=== PATIENT | female | born 1950 ===

== ENCOUNTER 2019-12-03 14:36 | Outpatient (CLI) | payer MEDICARE, OTHER, SELFPAY ==
--- NOTE | 2019-12-03 14:46 | XR_ITS ---
WS: [id number] DEXA (DUAL ENERGY X-RAY ABSORPTIOMETRY) Bone mineral density was performed using a [employer] machine. HISTORY: OSTEOPOROSIS COMPARISON: 09/24/2014 Lumbar spine BMD (L1-L4): 0.650 T score: -4.4 Z score: -2.5 Mild compression fracture L3. Total hip BMD: Left: 0.727. T score: -2.2 Z score: -0.6 Right: 0.500. T score: -4.0 Z score: -2.4 10 year probability of a major osteoporotic fracture is 33%. Compared to the prior study from 09/24/2014. Lumbar spine bone mineral density has decreased by 11%. Bilateral hips bone mineral density has decreased by 25%. XR/XR DEXA axial skeleton* [id number] IMPRESSION: OSTEOPOROSIS based upon the WHO classification for females. Significant decrease in bone mineral density since the prior study.
== END 2019-12-03 14:37 | disposition home or self-care (01) ==
LOC: RADWPI 14:44
PROVIDERS: Family Provider Family Medicine; PCP Family Medicine; Visit Provider Family Medicine
DX: M81.0 Age-related osteoporosis without current pathological fracture (principal)
CPT/HCPCS: 77080

== ENCOUNTER 2021-02-10 09:13 | Outpatient (CLI) | payer MEDICARE, OTHER, SELFPAY ==
[2021-02-10] MEDS: denosumab 60 mg SDV SUBCUT (09:30)
== END 2021-02-10 09:14 | disposition home or self-care (01) ==
LOC: ONCMED 09:15
PROVIDERS: Family Provider Family Medicine; PCP Family Medicine; Visit Provider Family Medicine
DX: M81.0 Age-related osteoporosis without current pathological fracture (principal)
CPT/HCPCS: 96372; J0897

== ENCOUNTER 2021-08-11 09:40 | Outpatient (CLI) | payer MEDICARE, OTHER, SELFPAY ==
[2021-08-11] MEDS: denosumab 60 mg SDV SUBCUT (10:15)
== END 2021-08-11 09:41 | disposition home or self-care (01) ==
LOC: ONCMED 09:45
PROVIDERS: PCP Family Medicine; Visit Provider Family Medicine
DX: M81.0 Age-related osteoporosis without current pathological fracture (principal)
CPT/HCPCS: 96372; J0897

== ENCOUNTER 2022-02-16 09:54 | Outpatient (CLI) | payer MEDICARE, OTHER, SELFPAY ==
[2022-02-16] MEDS: denosumab 60 mg SDV SUBCUT (10:18)
== END 2022-02-16 09:55 | disposition home or self-care (01) ==
PROVIDERS: PCP Family Medicine; Referring Provider Family Medicine; Visit Provider Family Medicine
DX: M81.0 Age-related osteoporosis without current pathological fracture (principal)
CPT/HCPCS: 96372; J0897

== ENCOUNTER 2022-08-24 10:54 | Outpatient (CLI) | payer MEDICARE, OTHER, SELFPAY ==
[2022-08-24] MEDS: denosumab 60 mg SDV SUBCUT (11:12)
[2022-08-24 11:22] VITALS: BP 108/62; PULSE 68; RESP 16; TEMP 36.7; O2SAT 99
== END 2022-08-24 10:55 | disposition home or self-care (01) ==
PROVIDERS: PCP Family Medicine; Visit Provider Family Medicine
DX: M81.0 Age-related osteoporosis without current pathological fracture (principal)
CPT/HCPCS: 96372; J0897

== ENCOUNTER → 2023-04-25 08:04 | Outpatient (BNVA) | payer MEDICARE, OTHER, SELFPAY | PROVIDERS: PCP Family Medicine; Referring Provider Nurse Practitioner; Visit Provider Orthopaedic Surgery | DX: M48.54XA Collapsed vertebra, not elsewhere classified, thoracic region, initial encounter for fracture (principal); M81.0 Age-related osteoporosis without current pathological fracture | CPT/HCPCS: 72070; 72100; 99204 ==

== ENCOUNTER 2023-05-01 15:58 | Outpatient (CLI) | payer MEDICARE, OTHER, SELFPAY ==
--- NOTE | 2023-05-01 16:00 | MR_ITS ---
WS: [id number] MRI THORACIC SPINE WITHOUT CONTRAST TECHNIQUE: Sagittal T1, T2 and STIR imaging. Axial T2 imaging. Noncontrast imaging obtained. CLINICAL INFORMATION: compression fractur COMPARISON: None. FINDINGS: Moderate thoracic kyphosis. Compression fractures with edema at T5 and T7 vertebral bodies. Biconcave compression at T7 with loss of approximately 80% vertebral body height centrally. No significant ret ropulsion. Loss of approximately 25% vertebral body height at T5 with edema. No retropulsion.Trace ed saurabh with slight compression superior endplate T8. Paravertebral soft tissue edema. Dorsal interspinou s soft tissue edema. No high-grade central canal narrowing. Cord signal is normal. Moderate spondylitic changes thoracic s pine. Moderate facet arthropathy lower thoracic spine. Normal caliber thoracic aorta. Adrenal glands are normal. MR/MR thoracic spin wo con* [id number] IMPRESSION: 1. Acute compression fractures at T5 and T7 described above. No significant re tropulsion. 2. Trace edema with slight compression superior endplate T8.
--- NOTE | 2023-05-01 16:45 | MR_ITS ---
WS: [id number] MRI LUMBAR SPINE NONCONTRAST TECHNIQUE: Sagittal T1, T2 and STIR imaging. Axial T1 and T2 imaging. CLINICAL INFORMATION: compression fracture COMPARISON: None. FINDINGS: Mild lumbar curve. Chronic biconcave compression L3 vertebral body with loss of approximately 60% dulce tebral body height centrally. Slight anterolisthesis L4 on L5. Mild chronic compression superior endp lates at T11 and T12. Compression fractures thoracic spine discussed on the thoracic spine MRI. L1-L2: Slight retrolisthesis. Mild annular bulging. Mild facet arthropathy. Spinal canal is patent. M ild LEFT foraminal narrowing. L2-L3: Mild annular bulging. Mild central canal stenosis. Impingement on the LEFT greater than RIGHT subarticular recess. Moderate facet arthropathy. Mild LEFT foraminal narrowing. L3-L4: Mild annular bulging. Mild central canal stenosis. Impingement on the traversing LEFT L4 nerve root. Mild LEFT foraminal narrowing. Moderate facet arthropathy. L4-L5: Grade 1 anterolisthesis. Moderate to severe central canal stenosis with impingement on doimngo ing L5 nerve roots bilaterally. Moderate facet arthropathy with ligamentum flavum hypertrophy. Mild t o moderate RIGHT foraminal narrowing. LEFT foramen is patent. L5-S1: Mild annular bulging. Spinal canal and foramen are patent. Moderate facet arthropathy. Visualized pelvic bony structures: Normal. Paravertebral soft tissues: Normal. MR/MR lumbar spine wo con* [id number] IMPRESSION: 1. Chronic biconcave compression L3 vertebral body with loss of approximately 60% vertebral body height centrally. Mild compression superior endplates T11 an d T12. 2. Slight anterolisthesis L4 on L5 with moderate to severe central canal steno sis. Impingement on the traversing L5 nerve roots. 3. Mild central canal stenosis L2-L3 with impingement on the LEFT subarticular recess. Mild LEFT foraminal narrowing. 4. Mild central canal stenosis L3-L4 with narrowing of the LEFT subarticular r ecess. Mild LEFT foraminal narrowing. 5. Mild to moderate RIGHT L4-L5 foraminal narrowing.
== END 2023-05-01 15:59 | disposition home or self-care (01) ==
PROVIDERS: PCP Family Medicine; Visit Provider Orthopaedic Surgery
DX: S22.000A Wedge compression fracture of unspecified thoracic vertebra, initial encounter for closed fracture (principal); M48.061 Spinal stenosis, lumbar region without neurogenic claudication; M47.816 Spondylosis without myelopathy or radiculopathy, lumbar region; X58.XXXA Exposure to other specified factors, initial encounter
CPT/HCPCS: 72146; 72148

== ENCOUNTER → 2023-05-09 14:52 | Outpatient (BNVA) | payer MEDICARE, OTHER, SELFPAY | PROVIDERS: PCP Family Medicine; Visit Provider Orthopaedic Surgery | DX: Z01.818 Encounter for other preprocedural examination (principal); T14.8XXA Other injury of unspecified body region, initial encounter; X58.XXXA Exposure to other specified factors, initial encounter | CPT/HCPCS: 80053; 81001; 85025; 99214 ==

== ENCOUNTER 2023-06-03 06:58 | Day surgery (SDC) | payer MEDICARE, OTHER, SELFPAY ==
[2023-06-03] VITALS (11 sets, daily range): BP systolic 134–165; BP diastolic 73–93; PULSE 80–96; RESP 14–18; TEMP 36.3–37.1; O2SAT 92–100
--- NOTE | 2023-06-03 07:04 | SC_ITS ---
WS: [id number] INTRAOPERATIVE TECHNIQUE: 4 Spot fluoroscopic images for intraoperative purposes. FLUOROSCOPY TIME: 144.1 seconds CLINICAL INFORMATION: T5 and T7 COMPARISON: None. FINDINGS: Fluoroscopy used for intraoperative kyphoplasty purposes. Intraoperative kyphoplasty T5 and T7. Edelmira rivero kyphosis. SC/C-arm FL for Kyphoplasty IMPRESSION: Images obtained for intraoperative purposes.
--- NOTE | 2023-06-03 08:16 | ANES.PREANE2 ---
Pre-Anesthetic Assessment Height/Weight: Height 1.47 m Temp Pulse Resp BP Pulse Ox O2 Del Method 98.7 F 89 18 161/78 96 Room Air 06/03/23 07:50 06/03/23 07:50 06/03/23 07:50 06/03/23 07:50 06/03/23 07:50 06/03/23 07:53 Preop Diagnosis: Thoracic compression fractures Operation Date: 06/03/23 08:30 Proposed Procedures p T5-7 Kyphoplasty:[id number],T14.8XXA(Not Applicable) - Jerardo Vincent, Familial anesthetic complications: none Was Beta Huong taken within 24 hours: N/A Was Clonidine taken within 24 hours: N/A Last intake: Intake Last Liquid Date 06/02/23 Last Liquid Time 20:00 Last Solid Date 06/02/23 Last Solid Time 18:00 Social No alcohol and No tobacco Exam alert, oriented x 3, clear to auscultation bilaterally and regular rate & rhythm Airway Submandibular: within normal limits Cervical ROM: within normal limits Mallampati: Class II Dentition: full Musc/skel Lower Back Pain and Osteoarthritis/DJD Anesthetic Plan ASA status: 2 Anesthesia: General Medications/Allergies Home Medications Medication Instructions Recorded Confirmed Last Taken Type hydrocodone 5 mg-acetaminophen 325 1 tab PO Q6H PRN pain 7 days #30 04/25/23 05/31/23 06/02/23 20:00 Rx mg tablet tabs Allergies Allergy/AdvReac Type Severity Reaction Status Date / Time No Known Allergies Allergy Verified 05/31/23 13:56 Data Anesthesia Cardiac Studies: No Data to Display
[2023-06-03] MEDS: sodium chloride 0.9% 1,000 ML 30 ML IV (08:21)
[2023-06-03] MEDS: ceFAZolin 2,000 MG in sodium chloride 0.9% (plus) 50 ML 100 MG IV (08:57)
--- NOTE | 2023-06-03 09:04 | W.PM.OPSUD ---
Surgery/Procedure H&P Update DATE OF PROCEDURE: June 03, 2023 DATE H&P PERFORMED: 05/16/23 H&P UPDATE INFORMATION: I have reviewed H&P completed within last 30 days, I have examined patient prior to procedure and No changes to prior documentation PREOP DIAGNOSIS: Thoracic compression fractures PLANNED PROCEDURE: Operation Date: 06/03/23 08:30 Proposed Procedures p T5-7 Kyphoplasty:[id number],T14.8XXA(Not Applicable) - Jerardo Vincent DO
[2023-06-03] MEDS: lidocaine-epi 1% 20 mL INJ INJECTION (09:41)
[2023-06-03] MEDS: iohexol 300 mg/mL 50 mL Btl (OR ONLY) XX (09:42)
--- NOTE | 2023-06-03 10:07 | PM.OP ---
Operative Report Date of procedure: June 03, 2023 Pre-op diagnosis: Preop Diagnosis Thoracic 5 and 7 wedge osteoporotic compression fractures Procedure done: 1. T5 kyphoplasty 2. T7 Kyphoplasty Surgeon: Jerardo Vincent Estimated blood loss (mL): 5 Procedure: 1. T5 kyphoplasty 2. T7 Kyphoplasty Patient was brought to the operative suite after undergoing anesthesia was placed in prone position. Eyes impingement well-padded patient was prepped draped in sterile fashion. Skin incision made over the T7 pedicle first on the left side. This is confirmed under AP and lateral fluoroscopy. Once the awl was inserted then the drill was inserted followed by the balloon. This process was then repeated at T5. Again skin incision is made over the lateral edge of the left pedicle at T 5. Next the awl was inserted followed by the drill followed by the balloon. Once the balloon was removed then cement was placed into the vertebral body of T7 and also into the vertebral body of T5. This confirmed to be in good condition on both AP and lateral fluoroscopy. Wounds irrigated closed with nylon suture. Sterile dressings applied patient transferred to the PACU in stable condition.
--- NOTE | 2023-06-03 10:10 | PC.NURSE ---
Pt arrived to PACU, resting comfortably, O2 at 3L/min via NC. Dressing to mid back C/D/I, able to move all extremities.
--- NOTE | 2023-06-03 10:24 | ANE.PACU2 ---
Inpatient post-anesthesia follow up: Airway intact: Yes Vital signs: Temperature 97.3 F Pulse Rate 92 Respiratory Rate 18 Blood Pressure 154/84 Pulse Oximetry 97 Oxygen Delivery Me thod Room Air Oxygen Flow Rate 3 Fraction of Inspir ed Oxygen Hydration adequate: Yes Nausea and vomiting: No Pain level: 3 Mental status: Baseline
[2023-06-03] MEDS: fentaNYL 50 mcg/mL INJ 2mL IVP (10:25)
--- NOTE | 2023-06-03 10:32 | PC.NURSE ---
Pt used bedpan, voided x1-clear urine, no odor, tolerated activity well.
[2023-06-03] MEDS: ondansetron 2 mg/ML SDV 2 mL 4 MG IVP (11:41)
--- NOTE | 2023-06-03 12:39 | SUR.PHASEII ---
11:41 medicated for nausea. 12:20 pain medication offered. patient declined. ROM and sensation in all 4 extremities. Assisted to rest room and back to room.
== END 2023-06-03 12:30 | disposition home or self-care (01) ==
PROVIDERS: PCP Family Medicine; Visit Provider Orthopaedic Surgery
PROC: (CPT 22513; principal; 2023-06-03 08:30)
DX: M80.08XA Age-related osteoporosis with current pathological fracture, vertebra(e), initial encounter for fracture (principal); Z79.891 Long term (current) use of opiate analgesic
CPT/HCPCS: 22513; 22515; 76000; J0690; J1100; J2371; J2405; J2704; J3010; J3490; J7030

== ENCOUNTER 2023-06-16 07:18 | Emergency (ER) | payer MEDICARE, OTHER, SELFPAY ==
[2023-06-16 07:35] VITALS: BP 152/88; PULSE 104; RESP 16; TEMP 37.4; O2SAT 94
[2023-06-16 08:25] VITALS: BP 152/88; PULSE 101; RESP 21; O2SAT 93
--- NOTE | 2023-06-16 08:35 | XRR_ITS ---
PROCEDURE INFORMATION: Exam: XR Abdomen Exam date and time: 06/16/2023 8:41 AM Age: 73 years old Clinical indication: Constipation; Additional info: Constipation. Abd pain TECHNIQUE: Imaging protocol: Radiologic exam of the abdomen. Views: Frontal supine view of the abdomen. 1 View. COMPARISON: MR lumbar spine wo con* [id number] 05/01/2023 4:54 PM FINDINGS: Gastrointestinal tract: Mild increased stool throughout the colon and rectum. Bones/joints: Multilevel degenerative change with mild levoconvex scoliotic curvature XR/XR abdomen 1V* [id number] IMPRESSION: Mild increased stool throughout the colon and rectum.
--- NOTE | 2023-06-16 08:36 | W.ED.FEMALGU ---
HPI - Female Genitourinary General: Chief complaint: Urogenital-Female Stated complaint: blood in stool, post back procedure Time Seen by Provider: 06/16/23 07:39 History of Present Illness: Patient presents to the ER with complaints of no bowel movement in approximately 2 weeks since his spinal surgery by Dr. Garcia. Patient also noted she had blood clots in her urine when she urinated this morning. Patient denies any fever or chills, patient is have some nausea. Patient states that pain medicine from her surgery makes her nauseous. Patient says her bowels have been active and making noises and she has been using [id number] laxatives with no results. Review of Systems General: Reports: 10 or more systems reviewed and unremarkable except in HPI and below Physical Exam Const: COMMON NORMALS: no acute distress, average body habitus, patient oriented x3, no limitations, healthy appearing, alert and well nourished HENMT: COMMON NORMALS: normocephalic, atraumatic, hearing grossly normal bilaterally, external ears normal, Normal external nose present and moist oral mucous membranes HEAD & SCALP: normocephalic and atraumatic NOSE: Normal external nose present EXTERNAL EAR: Yes external ears normal Neck/C-Spine: COMMON NORMALS: full ROM, no lymphadenopathy, supple, no meningeal signs, no JVD and Thyroid normal THYROID: Thyroid normal Chest: COMMONS NORMALS: normal inspection of the chest and normal palpation of entire chest wall Resp: COMMON NORMALS: normal respiratory effort, No retractions, No use of accessory muscles and clear to auscultation bilaterally AUSCULTATION: clear to auscultation bilaterally Cardio: COMMON NORMALS: no JVD, regular rate, regular rhythm, S1 normal heart sound present, S2 normal heart sound present, No gallops present (Cardio), No clicks present (Cardio), No murmurs present (Cardio) and No rub (Cardio) RATE: regular rate RHYTHM: regular rhythm HEART SOUNDS: S1 normal heart sound present and S2 normal heart sound present GI: COMMON NORMALS: Normal to inspection, nondistended, normoactive bowel sounds present, Soft to palpation, No hepatosplenomegaly present and no masses; negative for non-tender (Diffusely tender) PALPATION: Yes Soft to palpation and Yes No hepatosplenomegaly present : COMMON NORMALS: Yes no CVA tenderness BLADDER/KIDNEY EXAM: Yes no CVA tenderness Back/Pelvis: COMMON NORMALS: no CVA tenderness Neuro: COMMON NORMALS: patient oriented x3 SENSORIUM/ORIENTATION: Yes alert MENINGEAL SIGNS: Yes no meningeal signs Course Vital Signs: Vital signs: Vital Signs Temperature 99.4 F 06/16/23 07:35 Pulse Rate 101 H 06/16/23 10:54 Respiratory Rate 20 H 06/16/23 10:54 Blood Pressure 161/83 06/16/23 10:54 Pulse Oximetry 94 06/16/23 10:54 Oxygen Delivery Me thod Room Air 06/16/23 10:54 MDM - Female Medical Decision Making Patient presents to the ER with complaints of blood in urine and no bowel movement for approximately 2 weeks. Patient says using the counter stool softeners or laxatives with no luck. Urinalysis was obtained which did show blood in the urine as well as infection. Abdominal x-ray was obtained which did show mild amount of stool. Patient be discharged home on ciprofloxacin and lactulose as treatments. Patient should follow-up with her PCP in approximately 7 days. Differential Diagnosis Likely abdominal pain and constipation; Unlikely acute appendicitis, calculus of kidney, diverticulitis, endometriosis, gastroenteritis, pancreatitis or small bowel obstruction Medical Records I reviewed the patient's medical records. Lab Data I reviewed the patient's lab results. 06/16/23 08:04 06/16/23 08:04 Radiology Impressions Abdomen X-Ray 06/16/23 08:35 IMPRESSION: Mild increased stool throughout the colon and rectum. Laboratory Results WBC 10.8 10^3/uL (4.0-10.0) H 06/16/23 08:04 RBC 3.74 10^6/uL (4.1-5.3) L 06/16/23 08:04 Hgb 10.8 g/dL (11.5-15.3) L 06/16/23 08:04 Hct 34.0 % (37.0-47.0) L 06/16/23 08:04 MCV 90.9 fl (81-99) 06/16/23 08:04 MCH 28.9 pg (28.0-34.0) 06/16/23 08:04 MCHC 31.8 g/dL (30.0-36.0) 06/16/23 08:04 RDW 13.8 % (12.1-15.1) 06/16/23 08:04 Plt Count 226 10^3/cmm (130-400) 06/16/23 08:04 MPV 12.4 fL (7.4-10.4) H 06/16/23 08:04 Neut % (Auto) 84.7 % 06/16/23 08:04 Lymph % (Auto) 6.6 % 06/16/23 08:04 [place] % (Auto) 7.6 % 06/16/23 08:04 Eos % (Auto) 0.1 % 06/16/23 08:04 Baso % (Auto) 0.4 % 06/16/23 08:04 Neut # (Auto) 9.19 10^3/uL (1.8-7.7) H 06/16/23 08:04 Lymph # (Auto) 0.7 10^3/uL (0.8-4.8) L 06/16/23 08:04 [place] # (Auto) 0.8 10^3/uL (0.2-0.9) 06/16/23 08:04 Eos # (Auto) 0.0 10^3/uL (0.0-0.8) 06/16/23 08:04 Baso # (Auto) 0.0 10^3/uL (0.0-0.1) 06/16/23 08:04 Nucleated RBC % (auto) 0 % 06/16/23 08:04 Nucleated RBCs # 0.0 /100WBC 06/16/23 08:04 Sodium 137 mmol/L (136-145) 06/16/23 08:04 Potassium 3.5 mmol/L (3.5-5.1) 06/16/23 08:04 Chloride 101 mmol/L (98-107) 06/16/23 08:04 Carbon Dioxide 26 mmol/L (22-29) 06/16/23 08:04 Anion Gap 13.5 (5-19) 06/16/23 08:04 BUN 11 mg/dL (8-23) 06/16/23 08:04 Creatinine 0.6 mg/dL (0.5-0.9) 06/16/23 08:04 GFR Calculation Not Reportable 06/16/23 08:04 Glucose 99 mg/dL (65-115) 06/16/23 08:04 Calculated Osmolality 283 mOsm/kg (285-295) L 06/16/23 08:04 Calcium 9.3 mg/dL (8.5-10.5) 06/16/23 08:04 Magnesium 2.0 mg/dL (1.7-2.3) 06/16/23 08:04 Total Bilirubin 0.4 mg/dL (0.15-1.2) 06/16/23 08:04 AST 15 U/L (0-32) 06/16/23 08:04 ALT 11 U/L (0-33) 06/16/23 08:04 Alkaline Phosphatase 117 U/L (35-105) H 06/16/23 08:04 Total Protein 7.2 g/dL (6.6-8.7) 06/16/23 08:04 Albumin 3.7 g/dL (3.5-5.2) 06/16/23 08:04 Globulin 3.5 g/dL (1.3-4.6) 06/16/23 08:04 Lipase 21 U/L (13-60) 06/16/23 08:04 Urine Color Yellow (Yellow) 06/16/23 08:20 Urine Appearance Hazy (CLEAR) A 06/16/23 08:20 Urine pH 8 (5-7) H 06/16/23 08:20 Ur Specific Lewis 1.015 (1.005-1.030) 06/16/23 08:20 Urine Protein 1+ (Negative) H 06/16/23 08:20 Urine Glucose (UA) Norm (Normal) 06/16/23 08:20 Urine Ketones Negative (Negative) 06/16/23 08:20 Urine Blood 3+ (Negative) H 06/16/23 08:20 Urine Nitrate Positive (Negative) H 06/16/23 08:20 Urine Bilirubin Neg (Negative) 06/16/23 08:20 Prot Sulfosalicylic Acd Positive (Negative) 06/16/23 08:20 Urine Urobilinogen Norm mg/dL (Negative) 06/16/23 08:20 Ur Leukocyte Esterase 2+ (Negative) H 06/16/23 08:20 Urine RBC 10-15 /hpf (0-2) H 06/16/23 08:20 Urine WBC Too numerous to cnt /hpf (0-5) H 06/16/23 08:20 Ur Squamous Epith Cells None /hpf (0-5) 06/16/23 08:20 Amorphous Sediment Not Reportable 06/16/23 08:20 Urine Bacteria 1+ /hpf (NONE) H 06/16/23 08:20 Discharge Plan Discharge Patient Disposition: Home Clinical Impression: Acute constipation Urinary tract infection Qualifiers: Urinary tract infection type: acute cystitis Hematuria presence: with hematuria Qualified Code(s): N30.01 - Acute cystitis with hematuria Condition: Stable Prescriptions: New ciprofloxacin HCl 500 mg tablet 500 mg PO Q12H Qty: 20 0RF lactulose 10 gram/15 mL (15 mL) solution 10 g PO TID PRN (Reason: constipation) Qty: 473 0RF No Action ondansetron 4 mg tablet,disintegrating 4 mg PO Q8H PRN (Reason: nausea and vomiting) Qty: 30 0RF hydrocodone-acetaminophen 5-325 mg tablet 1 - 2 tab PO .Q4-6H PRN (Reason: pain) 7 Days Qty: 40 0RF Aspir-81 81 mg Tablet,Delayed Release (Dr/Ec) 81 mg PO QAM Colace 100 mg Capsule 100 mg PO DAILY PRN (Reason: Constipation) Discharge Orders: Discharge ED (Routine); Ordered 06/16/23 Ordered By: Finn Ugalde Referrals: Walt Everett MD [Primary Care Provider] - 7-10 days Patient Instructions: Constipation (ED), Urinary Tract Infection - Women Activity Restrictions/Additional Instructions: Take all medicine as directed, please follow-up with family practice physician in the next 7 days or sooner as needed. 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
[2023-06-16 08:54] LABS: Basophils % 0.4 %; Eosinophils % 0.1 %; Hemoglobin 10.8 g/dL (11.5-15.3); Lymphocytes # 0.7 10^3/uL (0.8-4.8); Lymphocytes % 6.6 %; Mean Corpuscular HGB Conc 31.8 g/dL (30.0-36.0); Mean Corpuscular Hemoglobin 28.9 pg (28.0-34.0); Mean Corpuscular Volume 90.9 fl (81-99); Mean Platelet Volume 12.4 fL (7.4-10.4); Monocytes # 0.8 10^3/uL (0.2-0.9); Monocytes % 7.6 %; Neutrophils # 9.19 10^3/uL (1.8-7.7); Neutrophils % 84.7 %; Nucleated Red Blood Cells % 0 %; Platelet Count 226 10^3/cmm (130-400); Red Blood Count 3.74 10^6/uL (4.1-5.3); Red Cell Distribution Width 13.8 % (12.1-15.1); White Blood Count 10.8 10^3/uL (4.0-10.0)
[2023-06-16 09:02] LABS: Add Urine Microscopic? YES; Bilirubin Urine Neg (Negative); Blood Urine 3+ (Negative); Glucose Urine UA Norm (Normal); Ketones Urine Negative (Negative); Leukocyte Esterase Urine 2+ (Negative); Nitrate Urine Positive (Negative); Protein Urine 1+ (Negative); Specific Gravity, Urine 1.015 (1.005-1.030); Sulfosalicylic Acid Urine Positive (Negative); Urine Appearance Hazy (CLEAR); Urine Color Yellow (Yellow); Urobilinogen Urine Norm (Negative); pH Urine 8 (5-7)
[2023-06-16 09:02] LABS: Alanine Aminotransferase 11 U/L (0-33); Albumin Level 3.7 g/dL (3.5-5.2); Alkaline Phosphatase 117 U/L (35-105); Anion Gap 13.5 (5-19); Aspartate Amino Transferase 15 U/L (0-32); Blood Urea Nitrogen 11 mg/dL (8-23); Calcium 9.3 mg/dL (8.5-10.5); Carbon Dioxide 26 mmol/L (22-29); Chloride 101 mmol/L (98-107); Globulin 3.5 g/dL (1.3-4.6); Glucose 99 mg/dL (65-115); Lipase 21 U/L (13-60); Osmolality Calculated 283 mOsm/kg (285-295); Potassium 3.5 mmol/L (3.5-5.1); Sodium 137 mmol/L (136-145); Total Bilirubin 0.4 mg/dL (0.15-1.2); Total Protein 7.2 g/dL (6.6-8.7)
[2023-06-16 09:03] LABS: Add Urine Culture? Yes; Bacteria Urine 1+ /hpf; WBC Urine TOO NUMEROUS TO CNT /hpf (0-5)
[2023-06-16 09:42] VITALS: BP 152/88; PULSE 105; RESP 28; O2SAT 95
[2023-06-16 10:08] VITALS: BP 152/88; PULSE 108; RESP 17; O2SAT 96
[2023-06-16 10:54] VITALS: BP 161/83; PULSE 101; RESP 20; O2SAT 94
[2023-06-16 12:17] VITALS: BP 161/83; PULSE 105; RESP 16; O2SAT 95
== END 2023-06-16 12:18 | disposition home or self-care (01) ==
PROVIDERS: Emergency Provider Emergency Medicine; PCP Family Medicine
DX: K59.00 Constipation, unspecified (principal); N30.01 Acute cystitis with hematuria; Z79.82 Long term (current) use of aspirin
CPT/HCPCS: 74018; 80053; 81001; 83690; 83735; 85025; 87077; 87086; 87186; 99284

== ENCOUNTER → 2023-06-18 08:33 | Outpatient (BNVA) | payer MEDICARE, OTHER, SELFPAY | PROVIDERS: PCP Family Medicine; Visit Provider Orthopaedic Surgery | DX: M54.9 Dorsalgia, unspecified (principal); Z98.890 Other specified postprocedural states | CPT/HCPCS: 99024 ==

== ENCOUNTER → 2023-07-11 13:52 | Outpatient (BNVA) | payer MEDICARE, OTHER, SELFPAY | PROVIDERS: PCP Family Medicine; Visit Provider Physician Assistant | DX: M80.08XA Age-related osteoporosis with current pathological fracture, vertebra(e), initial encounter for fracture; M54.6 Pain in thoracic spine | CPT/HCPCS: 99213 ==

== ENCOUNTER 2023-07-18 10:57 | Outpatient (CLI) | payer MEDICARE, OTHER, SELFPAY ==
--- NOTE | 2023-07-18 11:00 | MR_ITS ---
WS: [id number] MRI LUMBAR SPINE NONCONTRAST TECHNIQUE: Sagittal T1, T2 and STIR imaging. Axial T1 and T2 imaging. CLINICAL INFORMATION: BACK PAIN COMPARISON: MRI 05/01/2023 FINDINGS: Moderate thoracic kyphosis barrel bung remover and dumper imaging with anterior wedging and compression mid thoracic spine. Co mpression fracture worse at T7 similar to previous. Progressed compression at T5 and T6 since 05/01/20 23. This can be followed up with thoracic spine MRI. In addition compression of the inferior endplate s T8, and T9 also appear progressed. In addition, new mild compression fracture superior endplate L1, biconcave compression L2, and new co mpression superior endplate L4. No significant retropulsion at these levels. Loss of approximately 40 % vertebral body height L1 Chronic biconcave compression L3 appears unchanged. Slight anterolisthesis L4 on L5 appears unchanged . L1-L2: No significant disc bulging. Tiny annular fissure. Mild facet arthropathy. Spinal canal and fo ramen are patent. L2-L3: Mild disc bulging with osteophytic ridging. Mild central canal stenosis with narrowing of the subarticular recess. Mild bilateral foraminal narrowing. L3-L4: Mild annular bulging. Mild central canal stenosis. Mild left foraminal narrowing. Mild facet a rthropathy. L4-L5: Severe central canal stenosis. Mild to moderate right foraminal narrowing. Moderate facet arth ropathy. L5-S1: Mild annular bulging. Slight effacement of the ventral thecal sac. Mild facet arthropathy. Spi nal canal and foramen are patent. Visualized pelvic bony structures: Normal. Paravertebral soft tissues: Normal. IMPRESSION: 1. New or progressed compression fractures in the midthoracic spine on the barrel bung remover and dumper imaging at T5, T6, T8 inferior endplate, and T9 inferior endplate. Stable endplate Schmorl's nodes at T11 and T12. 2. New compression fractures of the lumbar spine with edema at L1 superior endplate, biconcave L2, a nd superior endplate L4 with mild compression. Loss of approximately 40% vertebral body height at L1. No significant retropulsion. 3. Stable grade 1 anterolisthesis L4 on L5 with severe central canal stenosis appears stable. 4. Chronic biconcave compression of L3 is unchanged.
== END 2023-07-18 10:58 | disposition home or self-care (01) ==
PROVIDERS: PCP Family Medicine; Visit Provider Physician Assistant
DX: M48.55XA Collapsed vertebra, not elsewhere classified, thoracolumbar region, initial encounter for fracture (principal); M48.061 Spinal stenosis, lumbar region without neurogenic claudication; M51.44 Schmorl's nodes, thoracic region
CPT/HCPCS: 72148

== ENCOUNTER → 2023-07-25 13:50 | Outpatient (BNVA) | payer MEDICARE, OTHER, SELFPAY | PROVIDERS: PCP Family Medicine; Visit Provider Physician Assistant | DX: Z01.818 Encounter for other preprocedural examination (principal); S32.010A Wedge compression fracture of first lumbar vertebra, initial encounter for closed fracture; S32.020A Wedge compression fracture of second lumbar vertebra, initial encounter for closed fracture; S32.040A Wedge compression fracture of fourth lumbar vertebra, initial encounter for closed fracture; S22.080A Wedge compression fracture of T11-T12 vertebra, initial encounter for closed fracture; X58.XXXA Exposure to other specified factors, initial encounter | CPT/HCPCS: 36415; 80053; 81001; 85025; 99214 ==

== ENCOUNTER 2023-08-07 14:23 | Outpatient (CLI) | payer MEDICARE, OTHER, SELFPAY ==
--- NOTE | 2023-08-07 14:30 | MR_ITS ---
WS: [id number] MRI THORACIC SPINE noncontrast HISTORY: M54.6 - Pain in thoracic spine COMPARISON: 05/01/2023 TECHNIQUE: Multiplanar sequences are performed in sagittal and axial planes. There is marked, progressive increase in thoracic kyphosis centered near T7. Increase in the compress ion fracture since 05/01/2023. New fractures were noted on the localizer from the lumbar spine of 07/18. T5: Acute marrow edema has resolved. Mild progression of the anterior wedging. Approximately 40% loss of height. No retropulsion. T6: Mild anterior wedging with biconcave deformity. Very slight marrow edema within the vertebral bod y. Fracture has progressed since the prior study with no retropulsion. T7: Severe biconcave vertebral plana compression fracture without retropulsion. Small amount of marro w edema persists within the anterior vertebral body. T8: Mild diffuse marrow edema from acute fracture. Progression of the previously described anterior w edging. Fracture approximately 30% with no retropulsion. T11 and T12: Schmorl's node in the superior endplates. No marrow edema. On the sagittal imaging some of the lumbar vertebral bodies are included. Previously described fractu res at L1, L2, L3 and L4 are stable. New marrow edema within L5. Signal within the cord remains normal. There is no disc or vertebral body contact on the thoracic cor d. No high-grade central stenosis. Reidentified is a small amount of edema within the paravertebral s oft tissues near the T5-6 level. IMPRESSION: 1. Marked increase in thoracic kyphosis centered near T7. 2. Multiple osteoporotic thoracic spine compression fractures of various ages. 3. Mild progression of the T5 previously described osteoporotic compression fracture to approximately 40%. 4. Progression of the T6 osteoporotic compression fracture with mild edema suggesting acute progressi on. 5. Stable T7 compression fracture. 6. New T8 osteoporotic compression fracture by 30%. 7. Several lumbar vertebral bodies are included. Multiple compression fractures were recently describ ed. New marrow edema and L5 without significant loss of height. 8. No retropulsion or cord compression.
== END 2023-08-07 14:24 | disposition home or self-care (01) ==
PROVIDERS: PCP Family Medicine; Visit Provider Physician Assistant
DX: M40.204 Unspecified kyphosis, thoracic region (principal); M48.54XA Collapsed vertebra, not elsewhere classified, thoracic region, initial encounter for fracture; M48.56XD Collapsed vertebra, not elsewhere classified, lumbar region, subsequent encounter for fracture with routine healing
CPT/HCPCS: 72146

== ENCOUNTER 2023-08-19 18:03 | Observation (INO) | payer MEDICARE, OTHER, SELFPAY ==
[2023-08-16 13:33] VITALS: BMI 22.8
[2023-08-19] VITALS (20 sets, daily range): BP systolic 81–170; BP diastolic 43–92; PULSE 68–101; RESP 16–24; TEMP 35.9–36.7; O2SAT 90–100; BMI 22.8
[2023-08-19] MEDS: sodium chloride 0.9% 1,000 ML 30 ML IV (06:26)
[2023-08-19] MEDS: ceFAZolin 2,000 MG in sodium chloride 0.9% (plus) 50 ML 100 MG IV ×2 (07:06→21:16)
--- NOTE | 2023-08-19 07:09 | SC_ITS ---
WS: [id number] EXAMINATION: C-arm FL for Kyphoplasty ORDER DATE: 08/19/2023 7:09 AM REASON FOR EXAM: Vertebroplasty COMPARISON: None available. FLUOROSCOPY TIME: 178 seconds. SPOT FILMS: 6 FINDINGS: Pre-existing vertebral plasties at T5 and T7. Current procedure vertebroplasty at T8, L1, L2, and L4. IMPRESSION: Intraoperative imaging of the thoracolumbar spine during vertebroplasty.
[2023-08-19] MEDS: lidocaine-epi 2% 20 mL INJ INJECTION (07:33)
[2023-08-19] MEDS: iohexol 300 mg/mL 50 mL Btl XX (07:57)
--- NOTE | 2023-08-19 08:17 | ANES.PREANE2 ---
Pre-Anesthetic Assessment Height/Weight: Height 1.5 m Weight 51.256 kg Temp Pulse Resp BP Pulse Ox O2 Del Method 98.1 F 75 18 170/92 98 Room Air 08/19/23 06:10 08/19/23 06:10 08/19/23 06:10 08/19/23 06:10 08/19/23 06:10 08/19/23 06:32 Operation Date: 08/19/23 07:00 Proposed Procedures p 96862:T11 ,62708:L1, 11667:L2, 33838:L4, S32.020A: Traumatic compression fracture of L2 vertebra, S32.040A:Traumatic compression fracture of L4 vertebra , S22.080A: Traumatic compression fracture of T11 thoracic vertebra , M54.6: Thoracic back pain(Not Applicable) - Jerardo Vincent, DO Was Beta Huong taken within 24 hours: N/A Was Clonidine taken within 24 hours: N/A Last intake: Intake Last Liquid Date 08/18/23 Last Liquid Time 20:30 Last Solid Date 08/18/23 Last Solid Time 19:00 Social No tobacco Exam alert, oriented x 3, clear to auscultation bilaterally and regular rate & rhythm Airway Submandibular: within normal limits Cervical ROM: within normal limits Mallampati: Class II Dentition: chipped and loose History/ROS No significant history except as noted Pulmonary None reported CV/HEM None reported None reported Hepatic None reported GI None reported Metabolic None reported Musc/skel Lower Back Pain Neuropsych None reported Anesthetic Plan ASA status: 2 Anesthesia: General Risk of > 500 ml blood loss (7ml/kg in children): No Medications/Allergies Home Medications Medication Instructions Recorded Confirmed Last Taken Type aspirin 81 mg tablet,delayed 81 mg PO QAM 06/16/23 08/16/23 08/02/23 History release docusate sodium 100 mg capsule 100 mg PO DAILY PRN Constipation 06/16/23 08/16/23 08/18/23 History (Colace) hydrocodone 5 mg-acetaminophen 325 1 tab PO .Q4-6H PRN pain 5 days 08/12/23 08/16/23 08/19/23 04:00 Rx mg tablet #30 tabs potassium chloride 10 mEq 10 meq PO DAILY #2 tabs 08/13/23 08/16/23 08/18/23 Rx tablet,extended release ibuprofen 600 mg PO Q6H PRN pain 08/19/23 08/19/23 08/13/23 History Allergies Allergy/AdvReac Type Severity Reaction Status Date / Time No Known Allergies Allergy Verified 08/13/23 15:05 Current Medications Generic Name Dose Route Start Last Admin Trade Name Freq PRN Reason Stop Dose Admin Sodium Chloride 1,000 mls @ 30 mls/hr 08/19/23 06:00 08/19/23 06:26 Sodium Chloride 0.9% IV 08/20/23 05:59 30 mls/hr .Q24H KAMRAN Administration PFSH Anesthesia Medical History (Updated 07/25/23 @ 14:26 by Curt Mak PA-C) Osteoporosis Thoracic back pain Data Anesthesia Cardiac Studies: No Data to Display
--- NOTE | 2023-08-19 08:37 | PM.OP ---
Operative Report Date of procedure: August 19, 2023 Pre-op diagnosis: Osteoporotic wedge traumatic compression fracture at T8, T11, L1, L2, and L4 Post-op diagnosis: same Procedure done: 1. T8 Kyphoplasty 2. T11 Kyphoplasty 3. L1 kyphoplasty 4. L2 Kyphoplasty 5. L4 kyphoplasty Pathology: T8 biopsy sent Surgeon: Jerardo Vincent DO Estimated blood loss (mL): 10 Procedure: 1. T8 Kyphoplasty 2. T11 Kyphoplasty 3. L1 kyphoplasty 4. L2 Kyphoplasty 5. L4 kyphoplasty Patient brought to the operative suite after going anesthesia patient was placed in prone position. All bony impingement was well-padded. Patient was prepped and draped normal sterile fashion. Attention was first brought to the T8 level. A incision was made over the lateral aspect of the right pedicle. The awl was inserted followed by the biopsy tube. A biopsy was taken at T8. Drill was then inserted balloon was then inserted. And then cement was inserted and had good fill. Attention was then brought to the T11 L1 and L2 levels. Attention was first brought to the T11 level the skin incision was made over the left pedicle. Awl was inserted inserted followed by the drill followed by the balloon. Next attention was brought to the L1 level. The left side was opened with the awl followed by the drill upon the balloon. And then the right side was also opened using the awl followed by the drill followed by the balloon. This process was then repeated at L2 the awl was used on both the right and left pedicles. The drill was inserted balloon was inserted. And then cement was placed at T11 L1 and L2 in both at all levels. AP lateral fluoroscopy ensured that the cement was in good position. Attention was then brought to the L4 level. Again skin incision made on the left and right pedicle. Awl was inserted on both the left and right pedicle. The drill was used on both the left and right side and the balloon was used on the left and right side. The cement was then injected AP lateral fluoroscopy ensured that the cement was good. There is cement was checked at all 5 levels. The T8 the T11 and L1-L2 L4 levels. Wounds were irrigated closed with nylon suture. Patient was transferred to the PACU in stable condition.
[2023-08-19] MEDS: fentaNYL 50 mcg/mL INJ 2mL IVP ×2 (08:42→08:52)
[2023-08-19] MEDS: ondansetron 2 mg/ML SDV 2 mL 4 MG IVP ×2 (09:39→13:30)
[2023-08-19] MEDS: HYDROcodone-acetaminophen 5-325 mg Tablet 1 TAB PO (10:56)
--- NOTE | 2023-08-19 11:13 | XR_ITS ---
WS: [id number] XR pelvis 1-2V* [id number] REASON FOR EXAM: post op pain FINDINGS: Mild changes of osteoarthritis in both hip joints. No acute fracture identified. Bowel gas and soft tissues of the pelvis demonstrate no significant abnormality. IMPRESSION: No acute abnormality identified.
--- NOTE | 2023-08-19 13:22 | PC.NURSE ---
pt up to chair. cont to have nausea and pain in left hip. pt sitting in chair . call light in reach.
[2023-08-19] MEDS: HYDROmorphone 1 mg/mL INJ 1 mL 0.5 MG IVP (14:37)
[2023-08-19] MEDS: diphenhydrAMINE 50 mg/mL SDV 1mL 12.5 MG IVP (14:52)
--- NOTE | 2023-08-19 14:52 | PC.NURSE ---
pt complaining of nausea . called for room. med given for nausea.
--- NOTE | 2023-08-19 17:06 | ANE.PACU2 ---
Inpatient post-anesthesia follow up: Airway intact: Yes Vital signs: Temperature 97 F Pulse Rate 80 Respiratory Rate 16 Blood Pressure 119/75 Pulse Oximetry 90 Oxygen Delivery Me thod Room Air Oxygen Flow Rate 2 Fraction of Inspir ed Oxygen Hydration adequate: Yes Nausea and vomiting: No (Improving) Pain level: 4 Mental status: Baseline
[2023-08-19] MEDS: HYDROcodone-acetaminophen 5-325 mg Tablet PO (17:22)
[2023-08-19] MEDS: acetaminophen 325 mg Tablet 650 MG PO (20:04)
[2023-08-19] MEDS: lactated ringers 1,000 ML 90 ML IV (21:16)
[2023-08-19] MEDS: docusate sodium 100 mg Capsule PO (21:17)
[2023-08-20 00:16] VITALS: BP 121/61; PULSE 84; RESP 16; TEMP 36.9; O2SAT 95
[2023-08-20] MEDS: ceFAZolin 2,000 MG in sodium chloride 0.9% (plus) 50 ML 100 MG IV (04:28)
[2023-08-20 04:57] VITALS: BP 139/66; PULSE 87; RESP 18; TEMP 37.4; O2SAT 94
[2023-08-20 07:51] VITALS: BP 172/80; PULSE 96; RESP 18; TEMP 37.1; O2SAT 93
--- NOTE | 2023-08-20 07:53 | PM.PN ---
Subjective Subjective: POD 1 Patient resting comfortably. Denies chest pain, shortness of breath, headaches. Vitals/I&O/Wt Last Vital Signs Temp 98.8 F 08/20/23 07:51 Pulse 96 08/20/23 07:51 Resp 18 08/20/23 07:51 BP 172/80 08/20/23 07:51 Pulse Ox 93 08/20/23 07:51 O2 Del Method Room Air 08/20/23 07:51 O2 Flow Rate 2 08/19/23 09:53 08/19/23 08/20/23 08/20/23 22:59 06:59 14:59 Intake Total 1050 / 1100 50 / 1150 Balance 1050 / 1095 50 / 1145 Weight last 48 hrs Weight 113 lb Physical Exam Narrative: Patient presents alert and oriented x3 with a good general appearance normal mood and affect. Normal coordination normal stability. Mild tenderness around the incisional site with the incision appear to be healing nicely. No signs of erythema or drainage. No signs of infection. Patient denies any fevers or chills. 4/5 motor strength both lower extremities with negative straight leg raise bilaterally. Calves are supple no medial thigh tenderness. Pulses are 2+ at the dorsalis pedis and posterior tibial region. Good capillary refill throughout normal sensation light touch both lower extremities. A&P Assessment and plan (1) Osteoporosis: Physical therapy to work with mobilization. financial services specialist to consult for home health care. Discharge home today. Follow-up in the office in 2 week's time for suture removal. Continue incentive spirometry at home for pulmonary toilet. (2) Thoracic back pain: Attestations Medical Necessity Statement*: Discharge home later today. Coding Level of Care Code Acute Code for [facility] Diagnoses Osteoporosis M81.0 Thoracic back pain M54.6
[2023-08-20] MEDS: ibuprofen 600 mg Tablet PO (08:16)
[2023-08-20] MEDS: docusate sodium 100 mg Capsule PO (08:34)
[2023-08-20] MEDS: potassium chloride ER 10 mEq Tablet PO (08:34)
[2023-08-20] MEDS: HYDROcodone-acetaminophen 5-325 mg Tablet 1 TAB PO ×2 (09:52→15:21)
--- NOTE | 2023-08-20 09:56 | PC.CHAP ---
Pastoral Care Encounter/Spiritual Assessment Type of Contact [] Declined vessel specialist visit [] Patient/Family/Request visit [] Outpatient visit [] Follow-up visit [] Physician referral [] Code/Alert [x] Routine visit [] Staff referral [] Actively dying [] Patient sleeping [] Family support [] [] Out of room [] Palliative care [] [] Receiving care in room [] Pre-surgical visit [] Trauma [] Long length of stay [] ICU visit [] Other: Relational/Emotional Strength [x] Patient feels connected with others/family/visitors/staff [] Distress [] Loneliness/isolation [] Abandonment Spirituality of Patient [x] Person of Ruth [] Attends Buddhism of their Ruth [x] Believes in Prayer [] Reads Bible or Zoroastrian materials [] There are Spiritual issues to be addressed Account Manager Trainee Interventions [x] Prayer [x] Active listening [] Non-anxious presence [x] Spiritual/emotional support [] Crisis/trauma care [] Spiritual counseling [] Bereavement support [] Provided bereavement packet [] Provided Bible/devotional materials [] Provided toy/stuffed animal, coloring book to patient or family member [] Provided Communion [] Anointing/[place] [] Salvation [x] Completed spiritual assessment [] Other: Impact on Illness or Injury [] Angry [] Fearful [] Anxious [] Often cries [] Exhaustion [] Unable to work [] Unable to attend congregation [] Unable to walk/stand [] Unable to read [] Unable to drive [] Unable to eat/drink [] Unable to sleep [] Unable to be with family [] Patient intubated [] Other: Summary Time spent with patient 5 min
[2023-08-20] MEDS: aspirin 81 mg EC Tablet PO (11:18)
[2023-08-20 11:49] VITALS: BP 161/77; PULSE 91; RESP 18; TEMP 36.7; O2SAT 93
== END 2023-08-20 17:24 | disposition home or self-care (01) ==
LOC: MEDSURG 18:04
PROVIDERS: Admitting Provider Orthopaedic Surgery; PCP Family Medicine; Visit Provider Orthopaedic Surgery
PROC: (CPT 22513; principal; 2023-08-19 07:00)
DX: S22.060A Wedge compression fracture of T7-T8 vertebra, initial encounter for closed fracture (principal); S22.080A Wedge compression fracture of T11-T12 vertebra, initial encounter for closed fracture; S32.010A Wedge compression fracture of first lumbar vertebra, initial encounter for closed fracture; S32.020A Wedge compression fracture of second lumbar vertebra, initial encounter for closed fracture; S32.040A Wedge compression fracture of fourth lumbar vertebra, initial encounter for closed fracture; X58.XXXA Exposure to other specified factors, initial encounter; M81.0 Age-related osteoporosis without current pathological fracture; Z79.82 Long term (current) use of aspirin
CPT/HCPCS: 22513; 22515 ×4; 72170; 76000; 88307; 88311; 97110; 97116; 97161; 97530; G0378; J0330; J0690; J1100; J1170; J1200; J2371; J2405; J2704; J2710; J3010; J3490; J7030; J7120; Q9967

== ENCOUNTER → 2023-09-03 13:04 | Outpatient (BNVA) | payer MEDICARE, OTHER, SELFPAY | PROVIDERS: PCP Family Medicine; Visit Provider Orthopaedic Surgery | DX: Z47.89 Encounter for other orthopedic aftercare (principal) | CPT/HCPCS: 99024; 99213 ==

== ENCOUNTER → 2023-09-10 08:24 | Outpatient (BNVA) | payer MEDICARE, OTHER, SELFPAY | PROVIDERS: Referring Provider Physician Assistant; Visit Provider Internal Medicine | DX: M81.0 Age-related osteoporosis without current pathological fracture (principal); S22.080A Wedge compression fracture of T11-T12 vertebra, initial encounter for closed fracture; E55.9 Vitamin D deficiency, unspecified; R94.6 Abnormal results of thyroid function studies; X58.XXXA Exposure to other specified factors, initial encounter | CPT/HCPCS: 99204 ==

== ENCOUNTER → 2023-09-10 09:28 | Outpatient (BNVA) | payer MEDICARE, OTHER, SELFPAY | PROVIDERS: Referring Provider Physician Assistant; Visit Provider Internal Medicine | DX: M81.0 Age-related osteoporosis without current pathological fracture (principal); E55.9 Vitamin D deficiency, unspecified; R94.6 Abnormal results of thyroid function studies | CPT/HCPCS: 36415; 80053; 82306; 82310; 83970; 84443 ==

== ENCOUNTER 2023-09-27 14:14 | Outpatient (CLI) | payer MEDICARE, OTHER, SELFPAY ==
--- NOTE | 2023-09-27 14:30 | XR_ITS ---
WS: [id number] SCREENING DEXA SCAN [employer] CLINICAL INFORMATION: M81.0 - Age-related osteoporosis without current patholog... COMPARISON: 2019 FINDINGS: The L1-L4 bone mineral density measures 1.359 g/cm2. This corresponds to a T score score of 1.5 and Z score of 3.7. Left femoral neck bone mineral density measures 0.624 g/cm2. This corresponds to a T score of -3.0 an d Z score of -1.0. Right femoral neck bone mineral density measures 0.469 g/cm2. This corresponds to a T score -4.3of an d Z score of -2.2. Mean femoral neck bone mineral density measures 0.547 g/cm2. This corresponds to a T score of -3.7 an d Z score of -1.6. LEFT forearm bone mineral density measures 0.383 with a T score of -5.6 and Z score of -3.4 IMPRESSION: Osteoporosis LEFT forearm. Osteoporosis femoral necks. Normal bone mineralization calculated in the lumbar spine although calculations are erroneous due to kyphoplasty changes and should be disregarded Patient's FRAX calculated 10 year probability for major osteoporotic fracture is 63.6% and osteoporot ic hip fracture is 55.1%. Bone mineral density in the femoral necks has decreased -10.9% since 2019
== END 2023-09-27 14:15 | disposition home or self-care (01) ==
LOC: RAD 14:14
PROVIDERS: Visit Provider Internal Medicine
DX: E55.9 Vitamin D deficiency, unspecified (principal); M81.0 Age-related osteoporosis without current pathological fracture; S22.080A Wedge compression fracture of T11-T12 vertebra, initial encounter for closed fracture; X58.XXXA Exposure to other specified factors, initial encounter
CPT/HCPCS: 77080

== ENCOUNTER → 2023-10-17 15:27 | Outpatient (BNVA) | payer MEDICARE, OTHER, SELFPAY | PROVIDERS: Visit Provider Orthopaedic Surgery | DX: Z47.89 Encounter for other orthopedic aftercare (principal); M54.6 Pain in thoracic spine | CPT/HCPCS: 99213 ==

== ENCOUNTER → 2023-11-20 09:06 | Outpatient (BNVA) | payer MEDICARE, OTHER, SELFPAY | PROVIDERS: PCP Family Medicine; Visit Provider Internal Medicine | DX: M81.0 Age-related osteoporosis without current pathological fracture (principal); S22.080A Wedge compression fracture of T11-T12 vertebra, initial encounter for closed fracture; E55.9 Vitamin D deficiency, unspecified; R94.6 Abnormal results of thyroid function studies; X58.XXXA Exposure to other specified factors, initial encounter | CPT/HCPCS: 36415; 82306; 99214 ==

== ENCOUNTER → 2023-12-10 13:52 | Outpatient (BNVA) | payer MEDICARE, OTHER, SELFPAY | PROVIDERS: PCP Family Medicine; Visit Provider Orthopaedic Surgery | DX: M54.6 Pain in thoracic spine (principal); R07.89 Other chest pain | CPT/HCPCS: 99213 ==

== ENCOUNTER → 2023-12-31 12:44 | Outpatient (BNVA) | payer MEDICARE, OTHER, SELFPAY | PROVIDERS: PCP Family Medicine; Visit Provider Orthopaedic Surgery | DX: R07.81 Pleurodynia (principal) | CPT/HCPCS: 99213 ==

== ENCOUNTER 2024-01-29 09:55 | Outpatient (RCR) | payer MEDICARE, OTHER, SELFPAY | END 2024-01-30 23:59 | disposition home or self-care (01) | LOC: SPT 09:55 | PROVIDERS: PCP Orthopaedic Surgery; Visit Provider Orthopaedic Surgery | DX: M54.6 Pain in thoracic spine (principal) | CPT/HCPCS: 97161 ==

== ENCOUNTER 2024-01-31 06:00 | Outpatient (RCR) | payer MEDICARE, OTHER, SELFPAY | END 2024-03-01 23:59 | disposition home or self-care (01) | LOC: SPT 06:00 | PROVIDERS: PCP Orthopaedic Surgery; Visit Provider Orthopaedic Surgery | DX: M54.6 Pain in thoracic spine (principal) | CPT/HCPCS: 97110 ==

== ENCOUNTER 2024-03-02 06:00 | Outpatient (RCR) | payer MEDICARE, OTHER, SELFPAY | END 2024-03-31 23:59 | disposition home or self-care (01) | LOC: SPT 06:00 | PROVIDERS: PCP Orthopaedic Surgery; Visit Provider Orthopaedic Surgery | DX: M54.6 Pain in thoracic spine (principal) | CPT/HCPCS: 97110 ==

== ENCOUNTER → 2024-03-03 15:34 | Outpatient (BNVA) | payer MEDICARE, OTHER, SELFPAY | PROVIDERS: PCP Orthopaedic Surgery; Visit Provider Orthopaedic Surgery | DX: G89.18 Other acute postprocedural pain (principal); M54.9 Dorsalgia, unspecified; M54.6 Pain in thoracic spine; S32.010D Wedge compression fracture of first lumbar vertebra, subsequent encounter for fracture with routine healing; X58.XXXD Exposure to other specified factors, subsequent encounter | CPT/HCPCS: 72072; 72100; 99213 ==

== ENCOUNTER 2024-04-01 06:00 | Outpatient (RCR) | payer MEDICARE, OTHER, SELFPAY | END 2024-05-01 23:59 | disposition home or self-care (01) | LOC: SPT 06:00 | PROVIDERS: PCP Orthopaedic Surgery; Visit Provider Orthopaedic Surgery | DX: M54.6 Pain in thoracic spine (principal) | CPT/HCPCS: 97110 ==

== ENCOUNTER → 2024-04-02 15:35 | Outpatient (BNVA) | payer MEDICARE, OTHER, SELFPAY | PROVIDERS: PCP Orthopaedic Surgery; Visit Provider Orthopaedic Surgery | DX: S22.080A Wedge compression fracture of T11-T12 vertebra, initial encounter for closed fracture (principal); S32.010A Wedge compression fracture of first lumbar vertebra, initial encounter for closed fracture; X58.XXXA Exposure to other specified factors, initial encounter | CPT/HCPCS: 72072; 72100; 99213 ==

== ENCOUNTER 2024-05-02 06:00 | Outpatient (RCR) | payer MEDICARE, OTHER, SELFPAY | END 2024-05-22 23:59 | disposition home or self-care (01) | LOC: SPT 06:00 | PROVIDERS: PCP Orthopaedic Surgery; Visit Provider Orthopaedic Surgery | DX: M54.6 Pain in thoracic spine (principal) | CPT/HCPCS: 97110 ==

== ENCOUNTER 2024-11-20 11:22 | Outpatient (CLI) | payer MEDICARE, OTHER, SELFPAY ==
[2024-11-20 12:49] LABS: 25 Hydroxy Vitamin D 90 ng/mL (30-100)
== END 2024-11-20 11:23 | disposition home or self-care (01) ==
LOC: LAB 11:24
PROVIDERS: PCP Family Medicine; Visit Provider Internal Medicine
DX: M81.0 Age-related osteoporosis without current pathological fracture (principal)
CPT/HCPCS: 82306

== ENCOUNTER → 2024-12-07 11:43 | Outpatient (BNVA) | payer MEDICARE, OTHER, SELFPAY | PROVIDERS: PCP Family Medicine; Visit Provider Internal Medicine | DX: M81.0 Age-related osteoporosis without current pathological fracture (principal); E55.9 Vitamin D deficiency, unspecified; S22.080A Wedge compression fracture of T11-T12 vertebra, initial encounter for closed fracture; R63.4 Abnormal weight loss; X58.XXXA Exposure to other specified factors, initial encounter | CPT/HCPCS: 99214 ==

== ENCOUNTER 2025-10-16 10:32 | Emergency (ER) | payer MEDICARE, OTHER, SELFPAY ==
[2025-10-16 11:19] VITALS: BP 152/88; PULSE 67; RESP 17; TEMP 36.6; O2SAT 98; BMI 21.9
--- NOTE | 2025-10-16 11:30 | XRR_ITS ---
PROCEDURE INFORMATION: Exam: XR Right Knee Exam date and time: 10/16/2025 11:31 AM Age: 75 years old Clinical indication: Pain; Knee; Right; Prior surgery; Surgery date: 6+ months; Surgery type: RT femoral nailing 2017; Additional info: RT knee pain after impact injury; HX RT femoral nailing (2017) TECHNIQUE: Imaging protocol: Radiologic exam of the right knee. Views: 3 views. COMPARISON: US - IMP US VENOUS DUPLEX LOW EXT RT 09/15/2019 8:07 AM FINDINGS: Bones/joints: Chronic appearing fracture deformity of the distal femur status post intramedullary nailing. No evidence of acute, periprosthetic fracture. Diffuse osteopenia limits sensitivity for subtle fracture detection. No knee dislocation. Mild tricompartmental osteoarthritis. No evidence of a substantial suprapatellar joint effusion. Soft tissues: Grossly unremarkable. XR/XR knee RT 3V* [id number] IMPRESSION: 1. Chronic appearing fracture of the distal femur status post intramedullary nailing. No evidence of acute, periprosthetic fracture. 2. Diffuse osteopenia. 3. Mild tricompartmental osteoarthritis.
[2025-10-16 13:00] VITALS: BP 155/118; PULSE 73; O2SAT 93
--- NOTE | 2025-10-16 13:06 | ED_ITS ---
HPI - Extremity Problem General: Chief complaint: Extremity Injury, Lower Stated complaint: Fall-R knee Pain Time Seen by Provider: 10/16/25 11:08 History of Present Illness: 75-year-old female she was pulling her t rash can when it fell over and hit her in the right leg laterally. Patient states she did not fall down all the way. There was no other injury does not strike her head did not lose consciousness she previously had a femur fracture with han placement on the right femur. She denies any other injuries at this time. Associated symptoms: Deny chest pain, fever(s) or rash Related Data Home Medications ?Medication ?Instructions ?Recorded ?Confirmed aspirin 81 mg tablet,delayed 81 mg PO QAM 06/16/23 release ascorbic acid (vitamin C) 1,000 mg 1 g PO Q6H 09/03/23 10/16/25 capsule ferrous sulfate 325 mg (65 mg 325 mg PO DAILY 09/03/23 10/16/25 iron) tablet (Feosol) cholecalciferol (vitamin D3) 50 50 mcg PO DAILY 10/16/25 mcg (2,000 unit) tablet (Vitamin D3) teriparatide 20 mcg/dose (560 20 mcg SUBCUT QPM 10/16/25 mcg/2.24 mL) subcutaneous pen injector (Forteo) Previous Rx's ?Medication ?Instructions ?Recorded tenz unit #1 ea 03/03/24 tramadol 50 mg tablet 25 mg (1/2 x 50 mg) PO Q8H P RN 10/16/25 pain #5 tabs Allergies Allergy/AdvReac Type Severity Reaction Status Date / Time No Known Allergies Allergy Verified 12/04/24 13:35 Review of Systems Const: Denies: fever(s) or chills Card: Denies: chest pain Resp: Denies: dyspnea GI: Denies: abdominal pain : Denies: dysuria, urinary frequency or urinary urgency Musc: Denies: neck pain or back pain Skin/Breast: Denies: rash PFSH ED PFSH: Medical History Osteoporosis Thoracic back pain Social History Smoking and tobacco/nicotine status: never used tobacco/nicotine Physical Exam Const: GENERAL APPEARANCE: cooperative ORIENTATION/CONSCIOUSNESS: Yes awake HENMT: COMMON NORMALS: normocephalic, atraumatic and hearing grossly normal bilaterally HEAD & SCALP: normocephalic and atraumatic Resp: COMMON NORMALS: normal respiratory effort, No retractions, No use of accessory muscles and clear to auscultation bilaterally AUSCULTATION: clear to auscultation bilaterally Cardio: COMMON NORMALS: regular rate, regular rhythm and No murmurs present (Cardio) RATE: regular rate RHYTHM: regular rhythm GI: COMMON NORMALS: Soft to palpation and No hepatosplenomegaly present AUSCULTATION: Yes normoactive bowel sounds PALPATION: Yes Soft to palpation, No Tenderness to palpation present (GI), No Guarding due to palpation present (GI) and Yes No hepatosplenomegaly present Extremity: COMMON NORMALS: normal to inspection, capillary refill normal, no clubbing, cyanosis or edema, no calf tenderness and no pedal edema OTHER: Examination of the knee no ligamentous instabilities or laxity's were noted no swelling no erythema no lacerations no edema no deformity. Skin: COMMON NORMALS: no rashes or lesions noted GENERAL SKIN EXAM: no rashes or lesions noted Course Vital Signs: Vital signs: Vital Signs Temperature 97.9 F 10/16/25 11:19 Pulse Rate 74 10/16/25 15:15 Respiratory Rate 17 10/16/25 11:19 Blood Pressure 150/73 10/16/25 15:15 Pulse Oximetry 96 10/16/25 15:15 Oxygen Delivery Me thod Room Air 10/16/25 15:15 MDM - Extremity (Nontraumatic) Medical Decision Making Plain x-ray of the knee does not show any acute fractures previously placed hardware is in good position with no loosening. Trial of ambulation patient a difficult time bearing full weight. CT done to evaluate for occult fracture no occult fracture noted. Reevaluation of the knee there is no swelling. No ligamentous instability or laxity. Will discharge home patient has ambulation aids such as a wheeled walker and canes at home also give tramadol to use 25 mg p.o. every 8 hours as needed follow-up with primary care if not improving. Lab Data Radiology Impressions Knee X-Ray 10/16/25 11:30 IMPRESSION: 1. Chronic appearing fracture of the distal femur status post intramedullary nailing. No evidence of acute, periprosthetic fracture. 2. Diffuse osteopenia. 3. Mild tricompartmental osteoarthritis. Knee CT 10/16/25 13:40 IMPRESSION: 1. Healed fracture deformity of the distal femur status post remote internal fixation with intramedullary han and locking screws. 2. No acute osseous abnormality. 3. Osseous demineralization. 4. Mild patellofemoral osteoarthritis. All radiology interpretation(s) finalized by discharge ED provider radiology interpretation(s): No acute fracture on plain x-ray hardware in place good position no loosening Discharge Plan Discharge Patient Disposition: Home Clinical Impression: Knee pain, right Condition: Stable Prescriptions: New tramadol 50 mg tablet 25 mg PO Q8H PRN (Reason: pain) Qty: 5 0RF No Action (DME) tenz unit See Rx Instructions .Route .MEDSUPPLY Qty: 1 0RF Rx Instructions: As directed ferrous sulfate [Feosol] 325 mg (65 mg iron) tablet 325 mg PO DAILY ascorbic acid (vitamin C) 1,000 mg capsule 1 g PO Q6H aspirin 81 mg Tablet,Delayed Release (Dr/Ec) 81 mg PO QAM cholecalciferol (vitamin D3) [Vitamin D3] 50 mcg (2,000 unit) Tablet 50 mcg PO DAILY teriparatide [Forteo] 20 mcg/dose (560mcg/2.24mL) pen injector 20 mcg SUBCUT QPM Discharge Orders: Discharge ED (Routine); Ordered 10/16/25 Ordered By: Abel Cook Referrals: Walt Everett MD [Primary Care Provider, Family Practice] Discharge Diet: Usual diet Discharge Activity: Increase activity as tolerated Patient Instructions: Opioid Safety, Pain Management, Patient Portal & Yue Instructions Activity Restrictions/Additional Instructions: Thank you for choosing [facility] for your healthcare needs today. It is very important that you follow up as instructed or that you return to the Emergency Department should you have concerns or if your condition changes or worsens in any way. Emergency department visits are focused on emergent conditions, in some cases you may require further evaluation on an outpatient basis. You were seen in the emergency room after a trash can hit your right knee. X- ray of your knee did not show any acute fractures. You still difficulty with full weightbearing so CT was done and there was no occult fracture noted on the CT. Based on your exam it does not seem likely you have a ligamentous injury at this time. Will discharge you home ice weightbearing as tolerated use ambulation aid such as your walker or cane. If you have persistent pain follow- up with your primary care doctor they can reevaluate do advanced imaging or refer to PT if necessary. You are given pain medications use 1/2 tablet every 8 hours as needed for discomfort. (Please note that included in your discharge packet is information concerning opioid safety and pain management. This information is given to all patients were discharged from the ER regardless of their discharge diagnosis or the medicines they usually take or are prescribed.) Print Language: Khmer Coding Level of Care Code ED [employer] Targeting Technician for [facility]
[2025-10-16] MEDS: HYDROcodone-acetaminophen 5-325 mg Tablet 1 TAB PO (13:38)
--- NOTE | 2025-10-16 13:40 | CTR_ITS ---
PROCEDURE INFORMATION: Exam: CT Right Lower Extremity Without Contrast, Knee Exam date and time: 10/16/2025 1:49 PM Age: 75 years old Clinical indication: Pain; Knee; Right; Prior surgery; Surgery date: 6+ months; Surgery type: RT femur; Additional info: Trauma pain TECHNIQUE: Imaging protocol: CT of the right lower extremity without contrast was performed. Exam focused on the knee. Radiation optimization: All CT scans at this facility use at least one of these dose optimization techniques: automated exposure control; mA and/or kV adjustment per patient size (includes targeted exams where dose is matched to clinical indication); or iterative reconstruction. COMPARISON: CR (LOW EXM, ) 10/16/2025 11:31 AM RADIATION DOSE METRICS: Total DLP (mGy-cm): 386.01 FINDINGS: Bones/joints: Healed fracture deformity of the distal femur status post remote internal fixation with intramedullary han and locking screws. Normal alignment. No acute fracture. Osseous demineralization. Mild patellofemoral osteoarthritis. Soft tissues: Normal. CT/CT knee RT wo con* [id number] IMPRESSION: 1. Healed fracture deformity of the distal femur status post remote internal fixation with intramedullary han and locking screws. 2. No acute osseous abnormality. 3. Osseous demineralization. 4. Mild patellofemoral osteoarthritis.
[2025-10-16 15:15] VITALS: BP 150/73; PULSE 74; O2SAT 96
== END 2025-10-16 15:41 | disposition home or self-care (01) ==
PROVIDERS: Emergency Provider Family Medicine; PCP Family Medicine
DX: M25.561 Pain in right knee (principal); Z79.82 Long term (current) use of aspirin
CPT/HCPCS: 73562; 73700; 99284; J9999

== ENCOUNTER 2025-10-29 12:59 | Outpatient (CLI) | payer MEDICARE, OTHER, SELFPAY ==
--- NOTE | 2025-10-29 13:00 | XR_ITS ---
WS: [id number] SCREENING DEXA SCAN [employer] CLINICAL INFORMATION: osteoporosis COMPARISON: 2022 FINDINGS: The LEFT forearm bone mineral density measures 0.35. This corresponds to a T score score of -6.0 and Z score of -3.7. Left femoral neck bone mineral density measures 0.617 g/cm2. This corresponds to a T score of -3.1 and Z score of -0.9. Right femoral neck bone mineral density measures 0.524 g/cm2. This corresponds to a T score -3.8of and Z score of -1.6. Mean femoral neck bone mineral density measures 0.571 g/cm2. This corresponds to a T score of -3.5 and Z score of -1.2. XR/XR DEXA axial skeleton* [id number] IMPRESSION: Osteoporosis LEFT forearm. Osteoporosis femoral necks. Patient's FRAX calculated 10 year probability for major osteoporotic fracture i s 62.8% and osteoporotic hip fracture is 55.1%. Bone density LEFT forearm decreased -9.7% Bone density femoral necks increased 4.4%
== END 2025-10-29 13:00 | disposition home or self-care (01) ==
LOC: RAD 13:01
PROVIDERS: PCP Family Medicine; Visit Provider Internal Medicine
DX: Z13.820 Encounter for screening for osteoporosis (principal); M81.0 Age-related osteoporosis without current pathological fracture
CPT/HCPCS: 77080

== ENCOUNTER → 2025-11-16 13:56 | Outpatient (BNVA) | payer MEDICARE, OTHER, SELFPAY | PROVIDERS: PCP Family Medicine; Visit Provider Internal Medicine Endocrinology, Diabetes & Metabolism | DX: M81.0 Age-related osteoporosis without current pathological fracture (principal); S22.080A Wedge compression fracture of T11-T12 vertebra, initial encounter for closed fracture; E55.9 Vitamin D deficiency, unspecified; R63.4 Abnormal weight loss; X58.XXXA Exposure to other specified factors, initial encounter | CPT/HCPCS: 99213 ==